=== PATIENT | female | born 1940 | race Caucasian/White ===

== ENCOUNTER → 2016-11-14 | Outpatient (CLI) | payer MEDICARE, BC ==
[~2016-11-14] MED LIST: CALTRATE-600 W600 MG PO; CENTRUM SILVER1 TAB PO; CIPRO 500MG TA500 MG PO; GLUCOSAMINE COM1 TA1 PO; HYZAAR 12.5 MG-1 TAB PO; LISINOPRIL/HCTZ1 TA1 PO; MINOCYCLINE PO; NORCO 325 MG-51 TAB PO; OMEGA-3 1000 MG1 CAP PO; PRILOSEC 20MG20 MG PO; SIMVASTATIN20 MG PO; VITAMIN D 1001000 IU PO
== END ==
LOC: COL.RAD 12:56
DX: N18.4 Chronic kidney disease, stage 4 (severe) (principal)

== ENCOUNTER → 2018-03-17 | Outpatient (CLI) | payer MEDICARE, BC | LOC: MC.RAD 03-10 11:40 | DX: Z12.31 Encounter for screening mammogram for malignant neoplasm of breast (principal) ==